=== PATIENT | male | born 1950 | race Caucasian/White ===

== ENCOUNTER 2025-04-22 20:35 | Inpatient (IN) | payer MEDICARE ==
[~2025-04-22] VITALS: Ht 172.7 cm; Wt 68.0 kg
[2025-04-22] MEDS ORDERED: MAGN400O6 PO (21:13)
[2025-04-22] MEDS ORDERED: ESCI10TA PO (21:13)
[2025-04-22] MEDS ORDERED: ROSU5TAB PO (21:13)
[2025-04-22] MEDS ORDERED: DIVA125C2 PO (21:13)
[2025-04-22] MEDS ORDERED: ACET-3117 PO (21:13)
[2025-04-22] MEDS ORDERED: BISA10SU61 RC (21:13)
[2025-04-22] MEDS ORDERED: GUAI100S69 PO (21:13)
[2025-04-22] MEDS ORDERED: NA P133E RC (21:13)
[2025-04-22] MEDS ORDERED: MULT-1045 PO (21:13)
[2025-04-22] MEDS ORDERED: LORA-259 PO (21:13)
[2025-04-22] MEDS ORDERED: TRAZ-182 PO (21:13)
[2025-04-22] MEDS ORDERED: LORA-258 PO (21:13)
[2025-04-22 21:47] LABS: *BILIRUBIN,URIN NEGATIVE (NEGATIVE); *BLOOD, URINE NEGATIVE (NEGATIVE); *CLARITY,URINE CLEAR (CLEAR); *COLOR,URINE YELLOW (YELLOW); *KETONES,URINE NEGATIVE (NEGATIVE); *PROTEIN,URINE NEGATIVE (NEGATIVE); *UROBILINOGEN,URINE 0.2 E.U./dl (NORMAL); LEUKOCYTE ESTERASE ,URINE NEGATIVE (NEGATIVE); NITRITE, URINE NEGATIVE (NEGATIVE); UGLUCOSE NEGATIVE (NEGATIVE)
[2025-04-22 21:53] LABS: *AMPHETAMINE, URINE NEGATIVE (NEGATIVE); *BARBITURATE, URINE NEGATIVE (NEGATIVE); *BENZODIAZEPINE, URINE NEGATIVE (NEGATIVE); *CANNABINOID, URINE NEGATIVE (NEGATIVE); *COCCAINE, URINE NEGATIVE (NEGATIVE); *OPIATE, URINE NEGATIVE (NEGATIVE); *PHENCYCLIDINE SCREEN,URINE NEGATIVE (NEGATIVE); FENTANYL, URINE NEGATIVE (NEGATIVE)
[2025-04-22 21:58] LABS: PLATELET COUNT (AUTO) 183 K/uL (152-348); RED BLOOD CELL COUNT(AUTO) 4.80 MIL/uL (4.06-5.63); RED CELL DISTRIBUTION WIDTH 14.4 % (12.1-16.2); WHITE BLOOD COUNT (AUTO) 7.5 K/uL (3.6-10.2)
[2025-04-22 22:10] LABS: ASPARTATE AMINOTRANSFERASE 31 U/L (15-37); CREATININE 1.0 mg/dL (0.6-1.3); SODIUM SERUM 139 mmol/L (136-145); TOTAL PROTEIN, SERUM 7.3 g/dL (6.4-8.2); UREA NITROGEN, BLOOD 13 mg/dL (7-18)
[2025-04-22 22:12] LABS: ETHANOL < 3 MG/DL (0-10)
[2025-04-22] MEDS ORDERED: diphenhydrAMINE 50 MG/1 ML VIAL ONE (22:27)
[2025-04-22] MEDS ORDERED: LORAZEPAM 2 MG/1 ML VIAL ONE (22:27)
[2025-04-22] MEDS: diphenhydrAMINE 50 MG/1 ML VIAL IM ONE (22:34)
[2025-04-22] MEDS: LORAZEPAM 2 MG/1 ML VIAL IM ONE (22:34)
[2025-04-23 02:45] VITALS: BP 121/48
[2025-04-23] MEDS ORDERED: TEMAZEPAM 7.5 MG CAPSULE PO PRN (03:00)
[2025-04-23] MEDS ORDERED: MAG HYDROX/AL HYDROX/SIMETH 30 ML LIQUID UDC PO PRN (03:00)
[2025-04-23] MEDS ORDERED: MAGNESIUM HYDROXIDE 30 ML LIQUID UDC PO PRN (03:00)
[2025-04-23] MEDS: BLOOD SUGAR DIAGNOSTIC 1 EACH STRIP VI ONE (03:21)
[2025-04-23] MEDS ORDERED: BISACODYL 10 MG SUPP.RECT RC PRN (06:45)
[2025-04-23 07:43] LABS: GLUCOSE FASTING 84.0 mg/dL (70-115)
[2025-04-23 08:00] VITALS: BP 139/72; TEMP 97.6; O2SAT 98
[2025-04-23] MEDS: MULTIVITAMINS,THERAPEUTIC TABLET PO SCH (08:36)
[2025-04-23] MEDS: ATORVASTATIN 10 MG TABLET PO SCH (08:36)
[2025-04-23] MEDS ORDERED: OLANZAPINE ZYDIS 5 MG TAB.RAPDIS PO ONE (11:00)
[2025-04-23] MEDS: OLANZAPINE 10 MG VIAL IM ONE ×2 (11:15→17:31)
[2025-04-23] MEDS: LORAZEPAM 1 MG TABLET PO PRN ×2 (12:46→20:54)
[2025-04-23] MEDS: ACETAMINOPHEN 325 MG TABLET PO PRN (12:46)
[2025-04-23 15:42] VITALS: BP 105/52; TEMP 97.6; O2SAT 100
[2025-04-23] MEDS: ENSURE ENLIVE (VAN) 240 ML LIQUID PO SCH (17:00)
[2025-04-23] MEDS: TEMAZEPAM 7.5 MG CAPSULE PO PRN (22:24)
[2025-04-24 08:25] VITALS: BP 124/67; TEMP 97.8; O2SAT 99
[2025-04-24] MEDS: DIVALPROEX SPRINKLE 125 MG CAP.SPRINK PO SCH ×2 (09:25→17:54)
[2025-04-24] MEDS: QUETIAPINE FUMARATE 25 MG TABLET PO SCH ×2 (09:25→20:06)
[2025-04-24 16:12] VITALS: BP 107/50; TEMP 97.2; O2SAT 96
[2025-04-24 20:00] VITALS: BP 126/78; O2SAT 96
[2025-04-25 08:19] VITALS: BP 92/67; TEMP 98; O2SAT 98
[2025-04-25] MEDS: OLANZAPINE 10 MG VIAL IM ONE (09:55)
[2025-04-25] MEDS: QUETIAPINE FUMARATE 25 MG TABLET PO SCH ×2 (13:23→16:57)
[2025-04-25] MEDS: DIVALPROEX SPRINKLE 125 MG CAP.SPRINK PO SCH (16:56)
[2025-04-26 09:51] VITALS: BP 100/59; TEMP 98; O2SAT 98
[2025-04-26 15:45] VITALS: BP 125/51; TEMP 98; O2SAT 96
[2025-04-26 20:00] VITALS: BP 113/87; TEMP 98; O2SAT 97
[2025-04-27 08:30] VITALS: BP 119/85; TEMP 98; O2SAT 78
[2025-04-27] MEDS: QUETIAPINE FUMARATE 25 MG TABLET PO SCH ×2 (14:31→21:00)
[2025-04-27 16:48] VITALS: BP 140/80; TEMP 98; O2SAT 78
[2025-04-27 20:00] VITALS: BP 116/64; TEMP 98; O2SAT 97
[2025-04-28 08:22] VITALS: BP 140/80; TEMP 98; O2SAT 78
[2025-04-28 16:16] VITALS: BP 130/64; TEMP 98; O2SAT 78
[2025-04-28] MEDS: QUETIAPINE FUMARATE 25 MG TABLET PO SCH (16:37)
[2025-04-28 20:12] VITALS: BP 124/64; TEMP 98.1; O2SAT 96
[2025-04-28] MEDS: QUETIAPINE FUMARATE 100 MG TABLET PO SCH (20:51)
[2025-04-28] MEDS: DIVALPROEX SPRINKLE 125 MG CAP.SPRINK PO SCH (20:52)
[2025-04-29] MEDS: OLANZAPINE 10 MG VIAL IM STA (07:40)
[2025-04-29] MEDS: QUETIAPINE FUMARATE 25 MG TABLET PO SCH (12:07)
[2025-04-29 20:10] VITALS: BP 146/76; TEMP 98.1; O2SAT 97
[2025-04-30] MEDS: QUETIAPINE FUMARATE 25 MG TABLET PO PRN (03:23)
[2025-04-30 08:47] VITALS: BP 123/61; O2SAT 96
[2025-04-30 15:57] VITALS: BP 113/62; O2SAT 97
[2025-04-30] MEDS ORDERED: QUETIAPINE FUMARATE 25 MG TABLET PO PRN (20:30)
[2025-05-01 09:46] VITALS: BP 167/87; TEMP 98; O2SAT 98
[2025-05-01 15:50] VITALS: BP 119/62; TEMP 98; O2SAT 98
[2025-05-01] MEDS: OLANZAPINE 10 MG VIAL IM ONE (17:52)
[2025-05-01 20:00] VITALS: BP 139/79
[2025-05-02 07:53] VITALS: BP 115/63; TEMP 98; O2SAT 100
[2025-05-02 16:00] VITALS: BP 110/63; TEMP 98; O2SAT 99
[2025-05-02 20:00] VITALS: BP 130/57
[2025-05-02] MEDS: QUETIAPINE FUMARATE 100 MG TABLET PO SCH (20:18)
[2025-05-03 07:33] LABS: PLATELET COUNT (AUTO) 123 K/uL (152-348); RED BLOOD CELL COUNT(AUTO) 4.61 MIL/uL (4.06-5.63); RED CELL DISTRIBUTION WIDTH 14.8 % (12.1-16.2); WHITE BLOOD COUNT (AUTO) 5.3 K/uL (3.6-10.2)
[2025-05-03 07:56] LABS: CREATININE 0.7 mg/dL (0.6-1.3); SODIUM SERUM 148 mmol/L (136-145); UREA NITROGEN, BLOOD 22 mg/dL (7-18); VALPROIC ACID 57 ug/mL (50-100)
[2025-05-03 08:17] VITALS: BP 119/51; TEMP 98; O2SAT 98
[2025-05-03] MEDS: OLANZAPINE 10 MG VIAL IM ONE (14:11)
[2025-05-03 15:38] VITALS: BP 116/70; TEMP 98; O2SAT 98
[2025-05-03 20:00] VITALS: BP 111/72
[2025-05-04 08:28] VITALS: BP 111/72
[2025-05-04] MEDS: OLANZAPINE 10 MG VIAL IM STA (10:09)
[2025-05-04 16:55] VITALS: BP 111/72
[2025-05-04 20:00] VITALS: BP 103/72
[2025-05-05 08:10] VITALS: BP 111/72
[2025-05-05] MEDS: OLANZAPINE 10 MG VIAL IM STA (16:02)
[2025-05-05 16:55] VITALS: BP 111/72
[2025-05-06 07:58] LABS: PLATELET COUNT (AUTO) 142 K/uL (152-348); RED BLOOD CELL COUNT(AUTO) 4.91 MIL/uL (4.06-5.63); RED CELL DISTRIBUTION WIDTH 14.5 % (12.1-16.2); WHITE BLOOD COUNT (AUTO) 7.2 K/uL (3.6-10.2)
[2025-05-06 08:19] LABS: ASPARTATE AMINOTRANSFERASE 20 U/L (15-37); CREATININE 0.7 mg/dL (0.6-1.3); SODIUM SERUM 144 mmol/L (136-145); TOTAL PROTEIN, SERUM 7.3 g/dL (6.4-8.2); UREA NITROGEN, BLOOD 21 mg/dL (7-18)
[2025-05-06] MEDS: RIVASTIGMINE TARTRATE 1.5 MG CAPSULE PO SCH (12:12)
[2025-05-06 20:00] VITALS: BP 135/56; O2SAT 97
[2025-05-06] MEDS: QUETIAPINE FUMARATE 25 MG TABLET PO SCH (20:27)
[2025-05-07 07:40] VITALS: BP 129/84; TEMP 97.6; O2SAT 95
[2025-05-07] MEDS: LORAZEPAM 2 MG/1 ML VIAL IM ONE (12:42)
== END 2025-05-07 13:54 | DRG 885 ==
LOC: ER 20:49 → GPS 04-23 02:15
PROVIDERS: ADMIT Psychiatry & Neurology Psychosomatic Medicine; ATTEND Nurse Practitioner Acute Care
DX: F39 Unspecified mood [affective] disorder (principal); G93.41 Metabolic encephalopathy; F02.811 Dementia in other diseases classified elsewhere, unspecified severity, with agitation; F02.82 Dementia in other diseases classified elsewhere, unspecified severity, with psychotic disturbance; F02.84 Dementia in other diseases classified elsewhere, unspecified severity, with anxiety; G31.83 Neurocognitive disorder with Lewy bodies; R26.89 Other abnormalities of gait and mobility; E78.5 Hyperlipidemia, unspecified; G47.00 Insomnia, unspecified; Z66 Do not resuscitate; M43.16 Spondylolisthesis, lumbar region; G89.29 Other chronic pain; Z79.899 Other long term (current) drug therapy; Z88.8 Allergy status to other drugs, medicaments and biological substances
CPT/HCPCS: 36415; 71045; 80164; 85025; A4606; A4663; C1758; G0480; J1200; J2060; J2358

== ENCOUNTER 2025-05-09 15:03 | Emergency (ER) | payer MEDICARE, OTHER ==
[~2025-05-09] VITALS: Ht 177.8 cm; Wt 77.1 kg
[~2025-05-09 15:03] MED LIST: ACET-3117 PO; BISA10SU61 RC; GUAI100S69 PO; MAGN400O6 PO; MULT-1045 PO; NA P133E RC; ROSU5TAB PO
[2025-05-09] MEDS ORDERED: HALOPERIDOL LACTATE 5 MG/1 ML VIAL ONE (15:50)
[2025-05-09] MEDS ORDERED: diphenhydrAMINE 50 MG/1 ML VIAL ONE (15:50)
[2025-05-09] MEDS ORDERED: LORAZEPAM 2 MG/1 ML VIAL ONE (15:51)
[2025-05-09] MEDS: diphenhydrAMINE 50 MG/1 ML VIAL IM ONE (15:57)
[2025-05-09] MEDS: LORAZEPAM 2 MG/1 ML VIAL IM ONE (15:57)
[2025-05-09] MEDS: HALOPERIDOL LACTATE 5 MG/1 ML VIAL IM ONE (15:57)
[2025-05-09 17:23] VITALS: BP 111/74
[2025-05-09 17:59] VITALS: BP 111/74; TEMP 98; O2SAT 98
== END 2025-05-09 17:25 ==
LOC: ER 15:03
DX: R45.1 Restlessness and agitation (principal); F03.92 Unspecified dementia, unspecified severity, with psychotic disturbance; F03.911 Unspecified dementia, unspecified severity, with agitation; E78.5 Hyperlipidemia, unspecified; G89.29 Other chronic pain; Z79.899 Other long term (current) drug therapy; Z88.8 Allergy status to other drugs, medicaments and biological substances; Z87.39 Personal history of other diseases of the musculoskeletal system and connective tissue
CPT/HCPCS: 99284; 96372 ×2; J1200; J1630; J2060; A4606; A4663